=== PATIENT | female | born 1950 | race Two or more races ===

== ENCOUNTER 2022-02-12 05:01 | Emergency (ER) | payer MEDICARE, MEDICAID ==
[~2022-02-12] VITALS: Ht 162.6 cm; Wt 93.9 kg
[2022-02-12] MEDS ORDERED: LORazepam 2MG/ML-1ML VIAL IV ONE (06:45)
[2022-02-12] MEDS ORDERED: ONDANSETRON HCL 4 MG/2 ML VIAL IV ONE (06:45)
[2022-02-12 06:50] LABS: Basophils # (auto) 0 10 ^3/uL (0-0.2); Basophils % (auto) 0.4 % (0.0-2.0); Eosinophils # (auto) 0 10 ^3/uL (0-0.8); Eosinophils % (auto) 0.1 % (0.0-7.0); Hematocrit 42.1 % (36.0-46.0); Hemoglobin 14.3 g/dL (12.2-16.2); Lymphocytes # (auto) 1.3 10 ^3/uL (0.4-5.4); Lymphocytes % (auto) 11.3 % (10.0-50.0); Mean Corpuscular Hemoglobin 30.1 pg (28.0-32.0); Mean Corpuscular Hgb Conc. 34.1 g/dL (32.0-36.0); Mean Corpuscular Volume 88.3 fL (80.0-100.0); Monocytes # (auto) 0.6 10 ^3/uL (0-1.3); Monocytes % (auto) 5.6 % (0.0-12.0); Neutrophils # (auto) 9.4 10 ^3/uL (1.6-8.6); Neutrophils % (auto) 82.6 % (37.0-80.0); Red Blood Cells 4.77 10^6/uL (4.0-5.20); Red Cell Distribution Width 13.9 % (11.8-14.3); White Blood Cell 11.4 10^3/uL (4.4-10.8)
[2022-02-12 07:05] LABS: Albumin 3.6 g/dL (3.4-5.0); BUN/Creatinine Ratio 18.3; Calcium 9.3 mg/dL (8.5-10.1); Potassium 3.4 mmol/L (3.5-5.1)
[2022-02-12 07:08] LABS: Bilirubin, Total 0.7 mg/dL (0.2-1.0); Total Protein 7.7 g/dL (6.4-8.2)
[2022-02-12] MEDS ORDERED: cefTRIAXone 1GM/50ML D5W 50 ML IV ONE (07:15)
[2022-02-12] MEDS ORDERED: POTASSIUM EFFERVESENT TAB 25 MEQ PO ONE (10:00)
[2022-02-12] MEDS ORDERED: MECL25CH38 PO (10:01)
[2022-02-12 10:19] LABS: Urine Amorphous Crystal MOD /hpf (None Seen); Urine Bacteria NONE SEEN /hpf (None Seen); Urine Blood TRACE /uL (Negative); Urine Budding Yeast OCCASIONAL /hpf (None Seen); Urine Specific Gravity 1.016 (1.001-1.035); Urine WBC 6 /hpf (0 - 5); Urine WBC Clumps PRESENT /hpf (None Seen)
[2022-02-12 10:50] VITALS: BP 148/87
== END 2022-02-12 11:05 | disposition home or self-care (01) ==
LOC: ER 05:01
DX: I10 Essential (primary) hypertension (principal); E87.6 Hypokalemia; R42 Dizziness and giddiness; R73.9 Hyperglycemia, unspecified; Z95.1 Presence of aortocoronary bypass graft; Z20.822 Contact with and (suspected) exposure to COVID-19
CPT/HCPCS: 36415; 70450; 80053; 81001; 82150; 83690; 84484; 85025; 87426; 93005; 96365; 96375; 99285; J0696; J2060; J2405

== ENCOUNTER 2024-03-25 13:57 | Inpatient (IN) | payer OTHER ==
[2024-03-25] VITALS (14 sets, daily range): BP systolic 65–114; BP diastolic 39–78; PULSE 100–135; RESP 17–26; TEMP 96–97.9; O2SAT 92–97
[~2024-03-25] VITALS: Ht 162.6 cm; Wt 99.2 kg
[~2024-03-25 13:57] MED LIST: MECL25CH38 PO
[2024-03-25] MEDS: SODIUM CHLORIDE 0.9% 1,000 ML IV ONE ×3 (15:08→17:18)
[2024-03-25 15:29] LABS: Basophils # (auto) 0.1 10 ^3/uL (0-0.2); Basophils % (auto) 0.4 % (0.0-2.0); Eosinophils # (auto) 0.1 10 ^3/uL (0-0.8); Eosinophils % (auto) 0.3 % (0.0-7.0); Hematocrit 37.3 % (36.0-46.0); Hemoglobin 12.2 g/dL (12.2-16.2); Lymphocytes # (auto) 3.3 10 ^3/uL (0.4-5.4); Lymphocytes % (auto) 15.1 % (10.0-50.0); Mean Corpuscular Hemoglobin 29.6 pg (28.0-32.0); Mean Corpuscular Hgb Conc. 32.7 g/dL (32.0-36.0); Mean Corpuscular Volume 90.6 fL (80.0-100.0); Monocytes # (auto) 0.9 10 ^3/uL (0-1.3); Monocytes % (auto) 4.2 % (0.0-12.0); Neutrophils # (auto) 17.3 10 ^3/uL (1.6-8.6); Nucleated Red Blood Cells % 0.1 %; Platelet Count (auto) 364 10^3/uL (140-450); Red Blood Cells 4.12 10^6/uL (4.0-5.20); Red Cell Distribution Width 13.8 % (11.8-14.3); White Blood Cell 21.6 10^3/uL (4.4-10.8)
[2024-03-25 15:38] LABS: Chloride 104 mmol/L (98-107); Potassium 3.2 mmol/L (3.5-5.1); Sodium 141 mmol/L (136-145)
[2024-03-25 15:39] LABS: Anion Gap 13 (5-15); Carbon Dioxide 24 mmol/L (20-30)
[2024-03-25 15:40] LABS: Calcium 9.3 mg/dL (8.7-10.4)
[2024-03-25 15:44] LABS: BUN/Creatinine Ratio 20.5 (10.0-20.0); Blood Urea Nitrogen 24 mg/dL (9-23); Glucose 242 mg/dL (74-106)
[2024-03-25] MEDS ORDERED: ACETAMINOPHEN 325 MG TAB PO PRN (16:00)
[2024-03-25] MEDS ORDERED: HYDROmorphone HCL 2 MG/ML VL/or syr IV PRN (16:00)
[2024-03-25] MEDS ORDERED: HYDROcodone-ACET 5/325MG TAB PO PRN (16:00)
[2024-03-25] MEDS: PANTOPRAZOLE 40mg/50ML NS AE 50 ML IV ONE (16:02)
[2024-03-25] MEDS: cefTRIAXone 1GM/50ML D5W 50 ML IV SCH (16:13)
[2024-03-25] MEDS: OCTREOTIDE ACETATE 100 MCG in SODIUM CHL 0.9% 50 ML IV ONE (16:19)
[2024-03-25] MEDS: OCTREOTIDE ACETATE 500 MCG in SODIUM CHL 0.9% 99 ML IV SCH (16:19)
[2024-03-25 16:39] LABS: INR 3.67 (0.9-1.15); Partial Thromboplastin Time 43.3 SEC (24.5-34.5); Prothrombin Time 35.3 sec (9.3-11.8)
[2024-03-25 16:53] LABS: Albumin 3.8 g/dL (3.2-4.8); Bilirubin, Direct 0.2 mg/dL (<0.3); Bilirubin, Total 0.6 mg/dL (0.2-1.0); Total Protein 6.5 g/dL (5.7-8.2)
[2024-03-25 17:05] LABS: % Iron Saturation 48.2 % (15-50)
[2024-03-25 17:07] LABS: Lactic Acid w/Reflex 4.9 mmol/L (0.4-2.0)
[2024-03-25 17:15] LABS: Ferritin 35.6 ng/mL (10-291); Folate (Folic Acid) 15.44 ng/mL (>5.38)
[2024-03-25] MEDS: POTASSIUM CHL 20MEQ/100ML 100 ML IV SCH (18:42)
[2024-03-25] MEDS: metroNIDAZOLE 500MG/100ML 100 ML IV ONE (18:55)
[2024-03-25] MEDS: NOREPINEPHRINE 8 MG/250ML KIT 250 ML IV SCH (19:46)
[2024-03-25 19:52] LABS: Urine Amorphous Crystal FEW /hpf (None Seen); Urine Bacteria FEW /hpf (None Seen); Urine Blood TRACE /uL (Negative); Urine Clarity Ex.Turbid (Clear); Urine Color Light-Orange (Yellow); Urine Mucus FEW (None Seen); Urine Protein, UAD 1+ (Negative); Urine Urobilinogen Normal (Negative); Urine WBC 6 /hpf (0 - 5)
[2024-03-25 19:55] LABS: Basophils # (auto) 0 10 ^3/uL (0-0.2); Basophils % (auto) 0.2 % (0.0-2.0); Eosinophils # (auto) 0 10 ^3/uL (0-0.8); Hematocrit 28.3 % (36.0-46.0); Hemoglobin 9.2 g/dL (12.2-16.2); Lymphocytes # (auto) 1.5 10 ^3/uL (0.4-5.4); Lymphocytes % (auto) 7.3 % (10.0-50.0); Mean Corpuscular Hemoglobin 29.9 pg (28.0-32.0); Mean Corpuscular Hgb Conc. 32.7 g/dL (32.0-36.0); Mean Corpuscular Volume 91.4 fL (80.0-100.0); Monocytes # (auto) 0.5 10 ^3/uL (0-1.3); Monocytes % (auto) 2.4 % (0.0-12.0); Neutrophils # (auto) 18.1 10 ^3/uL (1.6-8.6); Neutrophils % (auto) 90.1 % (37.0-80.0); Nucleated Red Blood Cells % 0.1 %; Platelet Count (auto) 287 10^3/uL (140-450); Red Blood Cells 3.09 10^6/uL (4.0-5.20); Red Cell Distribution Width 13.9 % (11.8-14.3); White Blood Cell 20.1 10^3/uL (4.4-10.8)
[2024-03-25 19:58] LABS: Amphetamine Screen, Urine Neg (NEGATIVE); Barbiturate Scree,Urine Neg (NEGATIVE); Benzodiazephine Screen, Urine Neg (NEGATIVE); Cocaine Screen, Urine Neg (NEGATIVE); Opiate Scree,Urine Neg (NEGATIVE); Phencyclidine Screen, Urine Neg (NEGATIVE)
[2024-03-25 19:59] LABS: Cannabinoid Screen, Urine Neg (NEGATIVE)
[2024-03-25 20:07] LABS: Chloride 113 mmol/L (98-107); Potassium 4.1 mmol/L (3.5-5.1); Sodium 144 mmol/L (136-145)
[2024-03-25 20:08] LABS: Anion Gap 11 (5-15); Calcium 7.9 mg/dL (8.7-10.4); Carbon Dioxide 20 mmol/L (20-30)
[2024-03-25 20:13] LABS: BUN/Creatinine Ratio 20.8 (10.0-20.0); Blood Urea Nitrogen 21 mg/dL (9-23); Glucose 190 mg/dL (74-106)
[2024-03-25] MEDS: PANTOPRAZOLE 40mg/50ML NS AE 50 ML IV SCH (20:40)
[2024-03-25] MEDS: PHENYLEPHRINE IV 250 ML IV SCH (21:15)
[2024-03-25] MEDS: SODIUM CHLOR 0.9% PF (SALINE LOCK) 10ML VIAL/SYR IV SCH (22:07)
[2024-03-25] MEDS: phytonadione 5 MG in SODIUM CHL 0.9% 50 ML IV ONE (22:14)
[2024-03-25] MEDS: POTASSIUM CHL 20MEQ/100ML 200 ML IV ONE (22:40)
[2024-03-25] MEDS: SODIUM CHLORIDE 0.9% 1,000 ML IV SCH (23:00)
[2024-03-26] VITALS (154 sets, daily range): BP systolic 76–177; BP diastolic 32–85; PULSE 95–150; RESP 11–43; TEMP 97–100.7; O2SAT 93–100
[2024-03-26] MEDS: ONDANSETRON HCL 4 MG/2 ML VIAL IV PRN (00:09)
[2024-03-26 00:58] LABS: Hematocrit 28.5 % (36.0-46.0); Hemoglobin 8.9 g/dL (12.2-16.2)
[2024-03-26 01:18] LABS: INR 2.15 (0.9-1.15); Prothrombin Time 21.5 sec (9.3-11.8)
[2024-03-26] MEDS: FUROSEMIDE 20 MG/2 ML VIAL IV ONE (02:30)
[2024-03-26] MEDS: OCTREOTIDE ACETATE 100 MCG/ML VL ONE (02:37)
[2024-03-26] MEDS: SODIUM CHLORIDE 0.9% 1,000 ML IV SCH (04:19)
[2024-03-26 04:20] LABS: Basophils # (auto) 0 10 ^3/uL (0-0.2); Basophils % (auto) 0.1 % (0.0-2.0); Eosinophils # (auto) 0 10 ^3/uL (0-0.8); Hematocrit 29.9 % (36.0-46.0); Hemoglobin 9.3 g/dL (12.2-16.2); Lymphocytes % (auto) 14.8 % (10.0-50.0); Mean Corpuscular Hemoglobin 29.1 pg (28.0-32.0); Mean Corpuscular Hgb Conc. 31.3 g/dL (32.0-36.0); Mean Corpuscular Volume 93.2 fL (80.0-100.0); Monocytes # (auto) 1.2 10 ^3/uL (0-1.3); Monocytes % (auto) 5.9 % (0.0-12.0); Neutrophils # (auto) 15.9 10 ^3/uL (1.6-8.6); Neutrophils % (auto) 79.2 % (37.0-80.0); Platelet Count (auto) 214 10^3/uL (140-450); Red Cell Distribution Width 14.2 % (11.8-14.3); White Blood Cell 20.1 10^3/uL (4.4-10.8)
[2024-03-26 04:37] LABS: Alanine Aminotransferase 17 U/L (7-40); Albumin 2.8 g/dL (3.2-4.8); Alkaline Phosphatase 57 U/L (46-116); Anion Gap 15 (5-15); Aspartate Aminotransferase 24 U/L (13-40); BUN/Creatinine Ratio 17.5 (10.0-20.0); Bilirubin, Total 0.6 mg/dL (0.2-1.0); Blood Urea Nitrogen 28 mg/dL (9-23); Calcium 7.6 mg/dL (8.7-10.4); Carbon Dioxide 15 mmol/L (20-30); Chloride 114 mmol/L (98-107); Glucose 213 mg/dL (74-106); Magnesium 1.7 mg/dL (1.6-2.6); Potassium 5.3 mmol/L (3.5-5.1); Sodium 144 mmol/L (136-145); Total Protein 4.9 g/dL (5.7-8.2)
[2024-03-26] MEDS ORDERED: LIDOCAINE VISCOUS 2% 15ML UD ONE (06:21)
[2024-03-26] MEDS ORDERED: fentaNYL CITRATE 100 MCG/2 ML VL ONE (06:49)
[2024-03-26] MEDS ORDERED: MIDAZOLAM HCL 2MG/2ML 2ml VIAL (1mg/ml) ONE (06:49)
[2024-03-26] MEDS: METOCLOPRAMIDE HCL 5MG/ml INJ 2ml VIAL IV ONE (06:57)
[2024-03-26] MEDS ORDERED: ETOMIDATE (2MG/ML) 20ML VIAL IV ONE (07:55)
[2024-03-26] MEDS: EPINEPHrine HCL 1 MG/10 ML SYRG ONE (07:58)
[2024-03-26] MEDS: fentaNYL Drip 2500mCg/250mlNS 250 ML IV SCH (08:15)
[2024-03-26] MEDS: ONDANSETRON HCL 4 MG/2 ML VIAL IV ONE (09:15)
[2024-03-26] MEDS ORDERED: MORPHINE SULFATE 4 MG/ML SYR/VIAL IV PRN (09:15)
[2024-03-26] MEDS ORDERED: MIDAZOLAM HCL 2MG/2ML 2ml VIAL (1mg/ml) IV PRN (09:15)
[2024-03-26] MEDS ORDERED: ePHEDrine SULFATE 50 MG/ML AMP IV PRN (09:15)
[2024-03-26] MEDS ORDERED: HYDROmorphone HCL 2 MG/ML VL/or syr IV PRN (09:15)
[2024-03-26] MEDS: VASOPRESSIN 40 UNITS in D5W 5% 198 ML IV SCH (09:45)
[2024-03-26 10:34] LABS: Chloride 119 mmol/L (98-107); Potassium 4.8 mmol/L (3.5-5.1); Sodium 148 mmol/L (136-145)
[2024-03-26 10:35] LABS: Anion Gap 11 (5-15); Carbon Dioxide 18 mmol/L (20-30)
[2024-03-26 10:36] LABS: Calcium 7.3 mg/dL (8.7-10.4)
[2024-03-26 10:40] LABS: Glucose 239 mg/dL (74-106)
[2024-03-26 10:41] LABS: BUN/Creatinine Ratio 21.6 (10.0-20.0); Blood Urea Nitrogen 36 mg/dL (9-23)
[2024-03-26] MEDS ORDERED: SODIUM CHLORIDE 0.9% 1,000 ML IV SCH (10:45)
[2024-03-26 10:59] LABS: Base Excess -10.5 mmol/L (-2.0-2.0)
[2024-03-26] MEDS: SODIUM BICARB 50mEq/50ml Vial 50 ML in SOD CHL 0.45% 1,000 ML IV SCH (11:15)
[2024-03-26] MEDS: MIDAZOLAM DRIP 50 mg/50mL 50 ML IV SCH (13:26)
[2024-03-26] MEDS: PIPERACILLIN-TAZOB 3.375GM 100 ML IV SCH (14:00)
[2024-03-26] MEDS ORDERED: TPN PER PHARMACY 0 ML IV SCH (14:45)
[2024-03-26 15:33] LABS: Magnesium 1.6 mg/dL (1.6-2.6)
[2024-03-26 15:35] LABS: Phosphorus 5.4 mg/dL (2.4-5.1)
[2024-03-26 16:27] LABS: Base Excess -10.2 mmol/L (-2.0-2.0)
[2024-03-26] MEDS: PIPERACILLIN-TAZOB 3.375GM 100 ML IV ONE (16:33)
[2024-03-26 17:22] LABS: Basophils # (auto) 0 10 ^3/uL (0-0.2); Basophils % (auto) 0.1 % (0.0-2.0); Eosinophils # (auto) 0 10 ^3/uL (0-0.8); Hematocrit 35.1 % (36.0-46.0); Hemoglobin 11.5 g/dL (12.2-16.2); Lymphocytes # (auto) 3.1 10 ^3/uL (0.4-5.4); Lymphocytes % (auto) 12.1 % (10.0-50.0); Mean Corpuscular Hemoglobin 29.5 pg (28.0-32.0); Mean Corpuscular Hgb Conc. 32.8 g/dL (32.0-36.0); Mean Corpuscular Volume 89.8 fL (80.0-100.0); Monocytes # (auto) 0.9 10 ^3/uL (0-1.3); Monocytes % (auto) 3.3 % (0.0-12.0); Neutrophils % (auto) 84.5 % (37.0-80.0); Platelet Count (auto) 173 10^3/uL (140-450); Red Blood Cells 3.91 10^6/uL (4.0-5.20); Red Cell Distribution Width 14.3 % (11.8-14.3)
[2024-03-26 17:34] LABS: Chloride 119 mmol/L (98-107); Sodium 145 mmol/L (136-145)
[2024-03-26 17:35] LABS: Anion Gap 7 (5-15); Calcium 7.1 mg/dL (8.7-10.4); Carbon Dioxide 19 mmol/L (20-30)
[2024-03-26 17:40] LABS: BUN/Creatinine Ratio 18.4 (10.0-20.0); Blood Urea Nitrogen 32 mg/dL (9-23); Glucose 270 mg/dL (74-106)
[2024-03-26 17:42] LABS: INR 1.52 (0.9-1.15); Partial Thromboplastin Time 27.6 SEC (24.5-34.5); Prothrombin Time 15.6 sec (9.3-11.8)
[2024-03-26 17:47] LABS: Potassium 5.9 mmol/L (3.5-5.1)
[2024-03-26] MEDS: DEXTROSE (50%) 50ML SYRG IV ONE (18:00)
[2024-03-26] MEDS: ALBUTEROL SULF 2.5 MG/0.5ML(0.5%) NEB SOLN NEB ONE (18:23)
[2024-03-26] MEDS: SODIUM BICARB 8.4% 50Meq/50ml SYR INJ IV ONE (18:51)
[2024-03-26] MEDS: InsuLIN REG 1unit/0.01ml Soln (100units/ml) IV ONE (18:58)
[2024-03-26] MEDS: AMINO ACID INFUSION IN D10W 1,000 ML IV SCH (19:49)
[2024-03-26] MEDS: MAGNESIUM SULFATE 1GM/100ML 100 ML IV ONE (19:58)
[2024-03-26] MEDS ORDERED: ACETAMINOPHEN 650 MG RECT SUPP PR PRN (22:15)
[2024-03-27] VITALS (120 sets, daily range): BP systolic 101–165; BP diastolic 42–72; PULSE 60–113; RESP 0–23; TEMP 97.8–99.1; O2SAT 97–98
[2024-03-27] MEDS ORDERED: DEXTROSE (50%) 50ML SYRG IV SCH
[2024-03-27] MEDS: InsuLIN REG 1unit/0.01ml Soln (100units/ml) SC SCH ×2 (00:26→17:21)
[2024-03-27] MEDS: ACCU-CHEK COMFORT CURVE STRIP VI SCH ×2 (00:27→17:21)
[2024-03-27 04:07] LABS: Hematocrit 25.8 % (36.0-46.0); Hemoglobin 8.5 g/dL (12.2-16.2); Mean Corpuscular Hemoglobin 29.4 pg (28.0-32.0); Mean Corpuscular Volume 89.3 fL (80.0-100.0); Platelet Count (auto) 171 10^3/uL (140-450); Red Blood Cells 2.89 10^6/uL (4.0-5.20); Red Cell Distribution Width 14.3 % (11.8-14.3)
[2024-03-27 04:23] LABS: INR 1.35 (0.9-1.15); Partial Thromboplastin Time 26.1 SEC (24.5-34.5)
[2024-03-27 04:31] LABS: Basophils % (manual) 0 (0.0-2.0); Blast Cells 0; Eosinophils % (manual) 0 (0-7); Metamyelocytes % 0; Myelocytes % 0; Promyelocytes % 0; Reactive Lymphocytes 0
[2024-03-27 04:40] LABS: Alanine Aminotransferase 28 U/L (7-40); Albumin 2.5 g/dL (3.2-4.8); Alkaline Phosphatase 45 U/L (46-116); Anion Gap 9 (5-15); Aspartate Aminotransferase 35 U/L (13-40); BUN/Creatinine Ratio 27.5 (10.0-20.0); Bilirubin, Total 0.5 mg/dL (0.2-1.0); Blood Urea Nitrogen 38 mg/dL (9-23); Calcium 6.9 mg/dL (8.7-10.4); Carbon Dioxide 19 mmol/L (20-30); Chloride 115 mmol/L (98-107); Magnesium 1.8 mg/dL (1.6-2.6); Phosphorus 2.4 mg/dL (2.4-5.1); Potassium 3.5 mmol/L (3.5-5.1); Sodium 143 mmol/L (136-145); Total Protein 4.3 g/dL (5.7-8.2)
[2024-03-27 04:49] LABS: Glucose 450 mg/dL (74-106)
[2024-03-27] MEDS: NOREPINEPHRINE 8 MG/250ML KIT 250 ML IV ONE (06:03)
[2024-03-27 07:41] LABS: Band Neutrophils % (manual) 3; Lymphocytes % (manual) 17 (10.0-50.0); Monocytes % (manual) 3 (0-12); Platelet Estimate Adequate
[2024-03-27 12:21] LABS: INR 1.39 (0.9-1.15); Partial Thromboplastin Time 25.6 SEC (24.5-34.5); Prothrombin Time 14.4 sec (9.3-11.8)
[2024-03-27 14:11] LABS: Basophils # (auto) 0 10 ^3/uL (0-0.2); Basophils % (auto) 0.1 % (0.0-2.0); Eosinophils # (auto) 0 10 ^3/uL (0-0.8); Hematocrit 28.1 % (36.0-46.0); Hemoglobin 9.2 g/dL (12.2-16.2); Lymphocytes # (auto) 2.1 10 ^3/uL (0.4-5.4); Lymphocytes % (auto) 7.6 % (10.0-50.0); Mean Corpuscular Hemoglobin 29.2 pg (28.0-32.0); Mean Corpuscular Hgb Conc. 32.9 g/dL (32.0-36.0); Mean Corpuscular Volume 88.8 fL (80.0-100.0); Monocytes # (auto) 2.1 10 ^3/uL (0-1.3); Monocytes % (auto) 7.4 % (0.0-12.0); Neutrophils % (auto) 84.9 % (37.0-80.0); Platelet Count (auto) 148 10^3/uL (140-450); Red Blood Cells 3.16 10^6/uL (4.0-5.20); Red Cell Distribution Width 14.2 % (11.8-14.3); White Blood Cell 28.2 10^3/uL (4.4-10.8)
[2024-03-27] MEDS ORDERED: DEXTROSE (50%) 50ML SYRG IV PRN (16:30)
[2024-03-27] MEDS: TPN PER PHARMACY IV NR (19:21)
[2024-03-27] MEDS ORDERED: TPN PER PHARMACY IV NR (20:00)
[2024-03-27 20:24] LABS: Hematocrit 25.9 % (36.0-46.0); Hemoglobin 8.5 g/dL (12.2-16.2)
[2024-03-27 21:29] LABS: INR 1.52 (0.9-1.15); Partial Thromboplastin Time 27.1 SEC (24.5-34.5); Prothrombin Time 15.6 sec (9.3-11.8)
[2024-03-27] MEDS: INSULIN LANTUS (GLARGINE) 1 /0.01ml (100units/ml) SC SCH (22:40)
[2024-03-27 23:05] LABS: Basophils # (auto) 0 10 ^3/uL (0-0.2); Eosinophils # (auto) 0 10 ^3/uL (0-0.8); Hematocrit 24.4 % (36.0-46.0); Hemoglobin 8.1 g/dL (12.2-16.2); Mean Corpuscular Hemoglobin 29.3 pg (28.0-32.0); Mean Corpuscular Hgb Conc. 33.1 g/dL (32.0-36.0); Red Blood Cells 2.75 10^6/uL (4.0-5.20)
[2024-03-27 23:07] LABS: Lymphocytes % (auto) 7.6 % (10.0-50.0); Mean Corpuscular Volume 88.6 fL (80.0-100.0); Monocytes # (auto) 1.8 10 ^3/uL (0-1.3); Neutrophils # (auto) 22.2 10 ^3/uL (1.6-8.6); Neutrophils % (auto) 85.4 % (37.0-80.0); Nucleated Red Blood Cells % 0.1 %; Platelet Count (auto) 111 10^3/uL (140-450); Red Cell Distribution Width 14.4 % (11.8-14.3); White Blood Cell 26.1 10^3/uL (4.4-10.8)
[2024-03-28] VITALS (114 sets, daily range): BP systolic 89–160; BP diastolic 28–67; PULSE 48–95; RESP 0–30; TEMP 97.8–98.6; O2SAT 95–100
[2024-03-28 03:56] LABS: Basophils # (auto) 0 10 ^3/uL (0-0.2); Eosinophils # (auto) 0 10 ^3/uL (0-0.8); Hematocrit 23.4 % (36.0-46.0); Hemoglobin 7.9 g/dL (12.2-16.2); Lymphocytes # (auto) 1.9 10 ^3/uL (0.4-5.4); Lymphocytes % (auto) 7.8 % (10.0-50.0); Mean Corpuscular Hemoglobin 29.9 pg (28.0-32.0); Mean Corpuscular Volume 88.1 fL (80.0-100.0); Monocytes # (auto) 1.3 10 ^3/uL (0-1.3); Monocytes % (auto) 5.5 % (0.0-12.0); Neutrophils # (auto) 21.1 10 ^3/uL (1.6-8.6); Neutrophils % (auto) 86.7 % (37.0-80.0); Nucleated Red Blood Cells % 0.1 %; Platelet Count (auto) 101 10^3/uL (140-450); Red Blood Cells 2.65 10^6/uL (4.0-5.20); Red Cell Distribution Width 14.4 % (11.8-14.3); White Blood Cell 24.3 10^3/uL (4.4-10.8)
[2024-03-28 04:00] LABS: Anion Gap 4 (5-15); Carbon Dioxide 27 mmol/L (20-30); Chloride 112 mmol/L (98-107); Potassium 3.6 mmol/L (3.5-5.1); Sodium 143 mmol/L (136-145)
[2024-03-28 04:01] LABS: Calcium 7.2 mg/dL (8.7-10.4)
[2024-03-28 04:03] LABS: INR 1.56 (0.9-1.15)
[2024-03-28 04:04] LABS: Alkaline Phosphatase 41 U/L (46-116)
[2024-03-28 04:05] LABS: Glucose 197 mg/dL (74-106)
[2024-03-28 04:06] LABS: BUN/Creatinine Ratio 36.5 (10.0-20.0); Blood Urea Nitrogen 19 mg/dL (9-23); Magnesium 1.9 mg/dL (1.6-2.6)
[2024-03-28 04:07] LABS: Albumin 2.4 g/dL (3.2-4.8); Aspartate Aminotransferase 19 U/L (13-40)
[2024-03-28 04:08] LABS: Bilirubin, Total 0.3 mg/dL (0.2-1.0); Phosphorus 1.1 mg/dL (2.4-5.1); Total Protein 4.1 g/dL (5.7-8.2)
[2024-03-28 04:28] LABS: Alanine Aminotransferase 22 U/L (7-40)
[2024-03-28] MEDS: VASOPRESSIN 20 UNIT/ML ONE ×2 (05:52→09:56)
[2024-03-28 07:48] LABS: Base Excess 1.6 mmol/L (-2.0-2.0)
[2024-03-28] MEDS ORDERED: EPINEPHrine HCL 1 MG/10 ML SYRG ONE (08:35)
[2024-03-28] MEDS ORDERED: MIDAZOLAM HCL 5 MG/ML-1ML VIAL ONE (08:45)
[2024-03-28] MEDS ORDERED: diphenhdrAMINE HCL 50 MG/1 ML VL ONE (08:45)
[2024-03-28] MEDS ORDERED: fentaNYL CITRATE 100 MCG/2 ML VL ONE (08:46)
[2024-03-28] MEDS: phytonadione 5 MG in SODIUM CHL 0.9% 50 ML IV ONE (13:12)
[2024-03-28] MEDS: LACTATED RINGER'S 1,000 ML IV SCH (13:20)
[2024-03-28] MEDS: POTASSIUM PHOSPHATE 26.4 MEQ in SODIUM CHL 0.9% 100 ML IV ONE (13:21)
[2024-03-28 13:49] LABS: Hematocrit 24.8 % (36.0-46.0); Hemoglobin 8.3 g/dL (12.2-16.2)
[2024-03-28] MEDS: TPN PER PHARMACY IV NR (21:04)
[2024-03-29] VITALS (109 sets, daily range): BP systolic 95–148; BP diastolic 39–73; PULSE 58–144; RESP 0–58; TEMP 97.9–98.3; O2SAT 95–100
[2024-03-29 03:51] LABS: Basophils # (auto) 0 10 ^3/uL (0-0.2); Eosinophils # (auto) 0 10 ^3/uL (0-0.8); Hematocrit 26.2 % (36.0-46.0); Hemoglobin 8.8 g/dL (12.2-16.2); Lymphocytes # (auto) 2.3 10 ^3/uL (0.4-5.4); Lymphocytes % (auto) 10.6 % (10.0-50.0); Mean Corpuscular Hemoglobin 30.1 pg (28.0-32.0); Mean Corpuscular Hgb Conc. 33.6 g/dL (32.0-36.0); Mean Corpuscular Volume 89.3 fL (80.0-100.0); Monocytes # (auto) 1.1 10 ^3/uL (0-1.3); Monocytes % (auto) 5.1 % (0.0-12.0); Neutrophils # (auto) 18.2 10 ^3/uL (1.6-8.6); Neutrophils % (auto) 84.3 % (37.0-80.0); Nucleated Red Blood Cells % 0.1 %; Platelet Count (auto) 107 10^3/uL (140-450); Red Blood Cells 2.94 10^6/uL (4.0-5.20); Red Cell Distribution Width 14.2 % (11.8-14.3); White Blood Cell 21.6 10^3/uL (4.4-10.8)
[2024-03-29 04:02] LABS: Alanine Aminotransferase 21 U/L (7-40); Albumin 2.7 g/dL (3.2-4.8); Alkaline Phosphatase 62 U/L (46-116); Anion Gap 2 (5-15); Aspartate Aminotransferase 18 U/L (13-40); BUN/Creatinine Ratio 33.3 (10.0-20.0); Blood Urea Nitrogen 14 mg/dL (9-23); Carbon Dioxide 31 mmol/L (20-30); Chloride 117 mmol/L (98-107); Glucose 126 mg/dL (74-106); Magnesium 2.2 mg/dL (1.6-2.6); Potassium 3.9 mmol/L (3.5-5.1)
[2024-03-29 04:03] LABS: Bilirubin, Total 0.4 mg/dL (0.2-1.0); Phosphorus 0.9 mg/dL (2.4-5.1); Total Protein 4.3 g/dL (5.7-8.2)
[2024-03-29 04:12] LABS: Sodium 150 mmol/L (136-145)
[2024-03-29] MEDS: SODIUM BICARB 8.4% 50Meq/50ml SYR Vial IV ONE (05:49)
[2024-03-29] MEDS: SUCCINYLCHOLINE CHLORIDE 20 MG/ML 10ML VIAL IV ONE (05:49)
[2024-03-29 07:34] LABS: Base Excess 0.6 mmol/L (-2.0-2.0)
[2024-03-29] MEDS: DOXYCYCLINE 100MG/250ML 250 ML IV SCH (10:39)
[2024-03-29] MEDS: POTASSIUM PHOSPHATE 44 MEQ in D5W 5% 250 ML IV ONE (11:48)
[2024-03-29] MEDS: METOCLOPRAMIDE HCL 5MG/ml INJ 2ml VIAL IV SCH (12:18)
[2024-03-29] MEDS: SOD CHL 0.45% 1,000 ML IV SCH (18:42)
[2024-03-29] MEDS: TPN PER PHARMACY IV NR (20:00)
[2024-03-30] VITALS (111 sets, daily range): BP systolic 93–148; BP diastolic 40–87; PULSE 75–101; RESP 18–21; TEMP 97.9–100; O2SAT 93–100
[2024-03-30 04:02] LABS: Basophils # (auto) 0 10 ^3/uL (0-0.2); Eosinophils # (auto) 0.1 10 ^3/uL (0-0.8); Eosinophils % (auto) 0.6 % (0.0-7.0); Hematocrit 26.7 % (36.0-46.0); Hemoglobin 8.7 g/dL (12.2-16.2); Lymphocytes # (auto) 1.6 10 ^3/uL (0.4-5.4); Lymphocytes % (auto) 13.6 % (10.0-50.0); Mean Corpuscular Hemoglobin 29.8 pg (28.0-32.0); Mean Corpuscular Hgb Conc. 32.7 g/dL (32.0-36.0); Mean Corpuscular Volume 91.1 fL (80.0-100.0); Monocytes # (auto) 0.7 10 ^3/uL (0-1.3); Monocytes % (auto) 6.2 % (0.0-12.0); Neutrophils # (auto) 9.6 10 ^3/uL (1.6-8.6); Neutrophils % (auto) 79.6 % (37.0-80.0); Nucleated Red Blood Cells % 0.1 %; Platelet Count (auto) 95 10^3/uL (140-450); Red Blood Cells 2.93 10^6/uL (4.0-5.20); Red Cell Distribution Width 14.5 % (11.8-14.3); White Blood Cell 12.1 10^3/uL (4.4-10.8)
[2024-03-30 04:23] LABS: Alanine Aminotransferase 20 U/L (7-40); Albumin 2.7 g/dL (3.2-4.8); Alkaline Phosphatase 75 U/L (46-116); Anion Gap 2 (5-15); Aspartate Aminotransferase 17 U/L (13-40); BUN/Creatinine Ratio 43.8 (10.0-20.0); Bilirubin, Total 0.5 mg/dL (0.2-1.0); Blood Urea Nitrogen 14 mg/dL (9-23); Calcium 7.8 mg/dL (8.7-10.4); Carbon Dioxide 30 mmol/L (20-30); Chloride 115 mmol/L (98-107); Glucose 115 mg/dL (74-106); Phosphorus 2.1 mg/dL (2.4-5.1); Potassium 3.7 mmol/L (3.5-5.1); Sodium 147 mmol/L (136-145); Total Protein 4.4 g/dL (5.7-8.2)
[2024-03-30] MEDS: FUROSEMIDE 20 MG/2 ML VIAL IV ONE (08:49)
[2024-03-30] MEDS: PANTOPRAZOLE 40 MG/10 ML VIAL INJ IV ONE (10:55)
[2024-03-30] MEDS: POTASSIUM PHOSPHATE 22 MEQ in SODIUM CHL 0.9% 100 ML IV ONE (12:29)
[2024-03-30] MEDS: TPN PER PHARMACY IV NR (20:40)
[2024-03-30] MEDS: PANTOPRAZOLE 40 MG/10 ML VIAL INJ IV SCH (21:56)
[2024-03-31] VITALS (109 sets, daily range): BP systolic 86–176; BP diastolic 41–70; PULSE 77–111; RESP 13–24; TEMP 98.3–100; O2SAT 93–99
[2024-03-31 04:16] LABS: Alanine Aminotransferase 18 U/L (7-40); Albumin 2.7 g/dL (3.2-4.8); Alkaline Phosphatase 76 U/L (46-116); Anion Gap 6 (5-15); Aspartate Aminotransferase 22 U/L (13-40); BUN/Creatinine Ratio 36.6 (10.0-20.0); Blood Urea Nitrogen 15 mg/dL (9-23); Calcium 7.9 mg/dL (8.7-10.4); Carbon Dioxide 26 mmol/L (20-30); Chloride 109 mmol/L (98-107); Glucose 119 mg/dL (74-106); Magnesium 1.9 mg/dL (1.6-2.6); Potassium 3.6 mmol/L (3.5-5.1); Sodium 141 mmol/L (136-145)
[2024-03-31 04:17] LABS: Bilirubin, Total 0.9 mg/dL (0.2-1.0); Phosphorus 3.4 mg/dL (2.4-5.1); Total Protein 4.9 g/dL (5.7-8.2)
[2024-03-31 08:13] LABS: Base Excess 0.6 mmol/L (-2.0-2.0)
[2024-03-31] MEDS: FUROSEMIDE 20 MG/2 ML VIAL IV ONE (17:34)
[2024-03-31] MEDS: TPN PER PHARMACY IV NR (19:35)
[2024-04-01] VITALS (115 sets, daily range): BP systolic 78–185; BP diastolic 35–102; PULSE 74–116; RESP 18–27; TEMP 98.8–100.9; O2SAT 94–100
[2024-04-01 04:34] LABS: Basophils # (auto) 0 10 ^3/uL (0-0.2); Basophils % (auto) 0.2 % (0.0-2.0); Eosinophils # (auto) 0.3 10 ^3/uL (0-0.8); Eosinophils % (auto) 1.9 % (0.0-7.0); Hematocrit 26.3 % (36.0-46.0); Hemoglobin 8.7 g/dL (12.2-16.2); Lymphocytes # (auto) 1.5 10 ^3/uL (0.4-5.4); Lymphocytes % (auto) 11.6 % (10.0-50.0); Mean Corpuscular Hemoglobin 29.6 pg (28.0-32.0); Mean Corpuscular Hgb Conc. 32.9 g/dL (32.0-36.0); Mean Corpuscular Volume 90.1 fL (80.0-100.0); Monocytes % (auto) 7.2 % (0.0-12.0); Neutrophils # (auto) 10.6 10 ^3/uL (1.6-8.6); Neutrophils % (auto) 79.1 % (37.0-80.0); Nucleated Red Blood Cells % 0.1 %; Platelet Count (auto) 143 10^3/uL (140-450); Red Blood Cells 2.92 10^6/uL (4.0-5.20); Red Cell Distribution Width 14.1 % (11.8-14.3); White Blood Cell 13.4 10^3/uL (4.4-10.8)
[2024-04-01 05:54] LABS: Chloride 106 mmol/L (98-107); Potassium 3.8 mmol/L (3.5-5.1); Sodium 140 mmol/L (136-145)
[2024-04-01 05:57] LABS: Anion Gap 7 (5-15); Carbon Dioxide 27 mmol/L (20-30)
[2024-04-01 05:58] LABS: Calcium 7.9 mg/dL (8.7-10.4)
[2024-04-01 06:03] LABS: Alkaline Phosphatase 76 U/L (46-116); BUN/Creatinine Ratio 27.9 (10.0-20.0); Blood Urea Nitrogen 12 mg/dL (9-23); Glucose 128 mg/dL (74-106); Magnesium 1.9 mg/dL (1.6-2.6)
[2024-04-01 06:04] LABS: Alanine Aminotransferase 17 U/L (7-40); Aspartate Aminotransferase 21 U/L (13-40)
[2024-04-01 06:05] LABS: Albumin 2.9 g/dL (3.2-4.8); Phosphorus 2.6 mg/dL (2.4-5.1); Total Protein 5.1 g/dL (5.7-8.2)
[2024-04-01 08:44] LABS: Base Excess -1.3 mmol/L (-2.0-2.0)
[2024-04-01] MEDS: DOCUSATE ORAL LIQUID 100 MG/10 ML UD GT SCH (10:26)
[2024-04-01] MEDS: FUROSEMIDE 20 MG/2 ML VIAL IV SCH (10:27)
[2024-04-01] MEDS ORDERED: POTASSIUM CHL 20MEQ/100ML 100 ML IV ONE (11:15)
[2024-04-01] MEDS: MAGNESIUM SULFATE 1GM/100ML 100 ML IV SCH (13:02)
[2024-04-01] MEDS: FUROSEMIDE 20 MG/2 ML VIAL IV ONE (13:02)
[2024-04-01] MEDS: POTASSIUM PHOSPHATE 22 MEQ in SODIUM CHL 0.9% 100 ML IV ONE (13:02)
[2024-04-01] MEDS: TPN PER PHARMACY IV NR (20:44)
[2024-04-01] MEDS: dilTIAZem 25 MG/5 ML VIAL IV ONE (23:31)
[2024-04-02] VITALS (107 sets, daily range): BP systolic 95–191; BP diastolic 31–93; PULSE 89–151; RESP 16–30; TEMP 98.3–99.9; O2SAT 93–100
[2024-04-02 03:55] LABS: Basophils # (auto) 0 10 ^3/uL (0-0.2); Basophils % (auto) 0.2 % (0.0-2.0); Eosinophils # (auto) 0.3 10 ^3/uL (0-0.8); Eosinophils % (auto) 1.7 % (0.0-7.0); Hematocrit 28.7 % (36.0-46.0); Hemoglobin 9.6 g/dL (12.2-16.2); Lymphocytes # (auto) 1.5 10 ^3/uL (0.4-5.4); Lymphocytes % (auto) 10.2 % (10.0-50.0); Mean Corpuscular Hemoglobin 29.8 pg (28.0-32.0); Mean Corpuscular Hgb Conc. 33.4 g/dL (32.0-36.0); Mean Corpuscular Volume 89.3 fL (80.0-100.0); Monocytes # (auto) 1.4 10 ^3/uL (0-1.3); Monocytes % (auto) 9.6 % (0.0-12.0); Neutrophils # (auto) 11.8 10 ^3/uL (1.6-8.6); Neutrophils % (auto) 78.3 % (37.0-80.0); Platelet Count (auto) 207 10^3/uL (140-450); Red Blood Cells 3.21 10^6/uL (4.0-5.20); Red Cell Distribution Width 13.9 % (11.8-14.3)
[2024-04-02 04:02] LABS: Potassium 3.6 mmol/L (3.5-5.1)
[2024-04-02 04:08] LABS: BUN/Creatinine Ratio 36.8 (10.0-20.0)
[2024-04-02 04:09] LABS: Magnesium 2.1 mg/dL (1.6-2.6)
[2024-04-02 04:10] LABS: Albumin 3.1 g/dL (3.2-4.8); Phosphorus 2.4 mg/dL (2.4-5.1)
[2024-04-02 07:46] LABS: Base Excess 2.6 mmol/L (-2.0-2.0)
[2024-04-02 10:19] LABS: Base Excess 3.8 mmol/L (-2.0-2.0)
[2024-04-02] MEDS ORDERED: VANCOMYCIN PER PHARMACY 0 MG IV SCH (10:45)
[2024-04-02] MEDS: FUROSEMIDE 20 MG/2 ML VIAL IV ONE (10:58)
[2024-04-02] MEDS: VANCOMYCIN 1GM/200ML 200 ML IV ONE (10:58)
[2024-04-02] MEDS: POTASSIUM PHOSPHATE 26.4 MEQ in SODIUM CHL 0.9% 100 ML IV ONE (10:58)
[2024-04-02 11:51] LABS: INR 1.03 (0.9-1.15); Prothrombin Time 10.9 sec (9.3-11.8)
[2024-04-02] MEDS: LIDOCAINE 1% (LOCAL ANESTH.) PF 5ml SDV ID ONE (15:44)
[2024-04-02] MEDS: EPINEPHrine HCL 0.5 ML NEB ONE ×2 (16:06→19:43)
[2024-04-02] MEDS: VANCOMYCIN 1GM/200ML 200 ML IV SCH (18:24)
[2024-04-02] MEDS: EPINEPHrine HCL 0.5 ML NEB NEB ONE (19:30)
[2024-04-02] MEDS: SODIUM CHLOR 0.9% PF (SALINE LOCK) 10ML VIAL/SYR IV SCH (19:54)
[2024-04-02] MEDS: TPN PER PHARMACY IV NR (19:58)
[2024-04-02] MEDS: METOPROLOL TARTRATE 1MG/1ML-5ML VIAL IV ONE (23:10)
[2024-04-03] VITALS (45 sets, daily range): BP systolic 106–175; BP diastolic 64–111; PULSE 103–136; RESP 14–28; TEMP 98.4–100.6; O2SAT 95–100
[2024-04-03 03:58] LABS: Basophils # (auto) 0 10 ^3/uL (0-0.2); Basophils % (auto) 0.1 % (0.0-2.0); Eosinophils # (auto) 0.1 10 ^3/uL (0-0.8); Eosinophils % (auto) 0.5 % (0.0-7.0); Hemoglobin 9.9 g/dL (12.2-16.2); Lymphocytes % (auto) 6.2 % (10.0-50.0); Mean Corpuscular Hemoglobin 29.2 pg (28.0-32.0); Mean Corpuscular Volume 88.6 fL (80.0-100.0); Monocytes # (auto) 1.7 10 ^3/uL (0-1.3); Monocytes % (auto) 10.2 % (0.0-12.0); Neutrophils # (auto) 13.8 10 ^3/uL (1.6-8.6); Platelet Count (auto) 267 10^3/uL (140-450); Red Blood Cells 3.38 10^6/uL (4.0-5.20); Red Cell Distribution Width 14.2 % (11.8-14.3); White Blood Cell 16.6 10^3/uL (4.4-10.8)
[2024-04-03 04:14] LABS: Alanine Aminotransferase 21 U/L (7-40); Alkaline Phosphatase 91 U/L (46-116); Anion Gap 8 (5-15); Calcium 8.4 mg/dL (8.7-10.4); Carbon Dioxide 27 mmol/L (20-30); Chloride 104 mmol/L (98-107); Glucose 160 mg/dL (74-106); Potassium 3.4 mmol/L (3.5-5.1); Sodium 139 mmol/L (136-145)
[2024-04-03 04:15] LABS: BUN/Creatinine Ratio 27.5 (10.0-20.0); Blood Urea Nitrogen 11 mg/dL (9-23); Magnesium 2.1 mg/dL (1.6-2.6)
[2024-04-03 04:16] LABS: Albumin 3.4 g/dL (3.2-4.8); Aspartate Aminotransferase 25 U/L (13-40); Phosphorus 1.8 mg/dL (2.4-5.1)
[2024-04-03 04:17] LABS: Bilirubin, Total 1.7 mg/dL (0.2-1.0); Total Protein 6.2 g/dL (5.7-8.2)
[2024-04-03] MEDS: POTASSIUM PHOSPHATE 44 MEQ in D5W 5% 250 ML IV ONE (12:18)
[2024-04-03] MEDS ORDERED: VANCOMYCIN 1GM/200ML 200 ML IV SCH (18:00)
[2024-04-03] MEDS: VANCOMYCIN 1GM/200ML 200 ML IV SCH (18:30)
[2024-04-03] MEDS: TPN PER PHARMACY IV NR (21:05)
[2024-04-04] VITALS (18 sets, daily range): BP systolic 112–140; BP diastolic 60–89; PULSE 112–125; RESP 19–30; TEMP 98–99.4; O2SAT 90–98
[2024-04-04 03:51] LABS: Basophils # (auto) 0 10 ^3/uL (0-0.2); Basophils % (auto) 0.3 % (0.0-2.0); Eosinophils # (auto) 0.2 10 ^3/uL (0-0.8); Eosinophils % (auto) 1.4 % (0.0-7.0); Hematocrit 26.3 % (36.0-46.0); Hemoglobin 8.9 g/dL (12.2-16.2); Lymphocytes # (auto) 1.2 10 ^3/uL (0.4-5.4); Lymphocytes % (auto) 8.9 % (10.0-50.0); Mean Corpuscular Hemoglobin 30.2 pg (28.0-32.0); Monocytes # (auto) 1.5 10 ^3/uL (0-1.3); Monocytes % (auto) 10.7 % (0.0-12.0); Neutrophils # (auto) 10.7 10 ^3/uL (1.6-8.6); Neutrophils % (auto) 78.7 % (37.0-80.0); Platelet Count (auto) 280 10^3/uL (140-450); Red Blood Cells 2.96 10^6/uL (4.0-5.20); Red Cell Distribution Width 14.5 % (11.8-14.3); White Blood Cell 13.6 10^3/uL (4.4-10.8)
[2024-04-04 04:02] LABS: Alanine Aminotransferase 25 U/L (7-40); Albumin 3.2 g/dL (3.2-4.8); Alkaline Phosphatase 92 U/L (46-116); Anion Gap 6 (5-15); Aspartate Aminotransferase 26 U/L (13-40); BUN/Creatinine Ratio 32.4 (10.0-20.0); Bilirubin, Total 1.4 mg/dL (0.2-1.0); Blood Urea Nitrogen 12 mg/dL (9-23); Calcium 8.2 mg/dL (8.7-10.4); Carbon Dioxide 26 mmol/L (20-30); Chloride 107 mmol/L (98-107); Glucose 163 mg/dL (74-106); Magnesium 2.1 mg/dL (1.6-2.6); Phosphorus 1.9 mg/dL (2.4-5.1); Potassium 3.6 mmol/L (3.5-5.1); Sodium 139 mmol/L (136-145)
[2024-04-04 04:03] LABS: Total Protein 5.9 g/dL (5.7-8.2)
[2024-04-04] MEDS: VANCOMYCIN 1GM/200ML 200 ML IV SCH (12:37)
[2024-04-04] MEDS ORDERED: TPN PER PHARMACY IV NR (20:00)
== END 2024-04-04 16:46 | disposition short-term general hospital (02) | DRG 207 ==
LOC: ER 13:57 → OVERFLOW 15:57 → ICU WEST 21:42
PROVIDERS: ADMIT Internal Medicine; ATTEND Internal Medicine Pulmonary Disease
PROC: 30233K1 Transfusion of Nonautologous Frozen Plasma into Peripheral Vein, Percutaneous Approach (ICD-10-PCS; 2024-03-25)
PROC: 5A1955Z Respiratory Ventilation, Greater than 96 Consecutive Hours (ICD-10-PCS; 2024-03-26)
PROC: 0BH17EZ Insertion of Endotracheal Airway into Trachea, Via Natural or Artificial Opening (ICD-10-PCS; 2024-03-26)
PROC: 02H633Z Insertion of Infusion Device into Right Atrium, Percutaneous Approach (ICD-10-PCS; 2024-03-26)
PROC: B548ZZA Ultrasonography of Superior Vena Cava, Guidance (ICD-10-PCS; 2024-03-26)
PROC: 30233N1 Transfusion of Nonautologous Red Blood Cells into Peripheral Vein, Percutaneous Approach (ICD-10-PCS; 2024-03-26)
PROC: 30233R1 Transfusion of Nonautologous Platelets into Peripheral Vein, Percutaneous Approach (ICD-10-PCS; 2024-03-26)
PROC: 3E0G8GC Introduction of Other Therapeutic Substance into Upper GI, Via Natural or Artificial Opening Endoscopic (ICD-10-PCS; principal; 2024-03-26 07:37)
PROC: 0DJ08ZZ Inspection of Upper Intestinal Tract, Via Natural or Artificial Opening Endoscopic (ICD-10-PCS; 2024-03-28)
PROC: 02HV33Z Insertion of Infusion Device into Superior Vena Cava, Percutaneous Approach (ICD-10-PCS; 2024-04-02)
PROC: B548ZZA Ultrasonography of Superior Vena Cava, Guidance (ICD-10-PCS; 2024-04-02)
DX: J96.01 Acute respiratory failure with hypoxia (principal); R57.1 Hypovolemic shock; K22.6 Gastro-esophageal laceration-hemorrhage syndrome; N17.0 Acute kidney failure with tubular necrosis; E44.0 Moderate protein-calorie malnutrition; D68.9 Coagulation defect, unspecified; I10 Essential (primary) hypertension; K44.9 Diaphragmatic hernia without obstruction or gangrene; T45.515A Adverse effect of anticoagulants, initial encounter; K22.89 Other specified disease of esophagus; I25.10 Atherosclerotic heart disease of native coronary artery without angina pectoris; E66.9 Obesity, unspecified; D69.6 Thrombocytopenia, unspecified; E11.65 Type 2 diabetes mellitus with hyperglycemia; D64.9 Anemia, unspecified; Z95.1 Presence of aortocoronary bypass graft; Z95.2 Presence of prosthetic heart valve; Z68.37 Body mass index [BMI] 37.0-37.9, adult
CPT/HCPCS: 36415; 36569; 36600; 43235; 71045; 71250; 74176; 76705; 80048; 80053; 80069; 80076; 80202; 80307; 81001; 82270; 82607; 82728; 82746; 82805; 82962; 83036; 83540; 83550; 83605; 83615; 83735; 84100; 84132; 84478; 84484; 85007; 85014; 85018; 85025; 85027; 85045; 85610; 85730; 86850; 86900; 86901; 86920; 87040; 87070; 87081; 87086; 87205; 92610; 93005; 93306; 94002; 94003; 96361; 96365; 96366; 96367; 96368; 97163; 99291; G0378; J0330; J1815; J2250; J2405; J2470; J2543; J3430; J3480; J3490; J7060